=== PATIENT | male | born 1995 | race Caucasian/White ===

== ENCOUNTER 2020-03-28 05:06 | Emergency (ER) | payer OTHER, BC ==
--- NOTE | 2020-03-28 05:13 | EDM.PDOC ---
ED HPI GENERAL MEDICAL PROBLEM - General Chief Complaint: Upper Extremity Injury/Pain Stated Complaint: R HAND INJURY S/P FALL Time Seen by Provider: 03/28/20 05:07 Source of Information: Reports: Patient History Limitations: Reports: Intoxication - History of Present Illness INITIAL COMMENTS - FREE TEXT/NARRATIVE: Brought to ER by law enforcement Has been drinking alcohol tonight Told the police that he had been kidnapped and did not feel safe where he was Police found him outside Pt states he fell 2 days ago and has pain and bruise to right thumb Onset: Gradual Duration: Day(s): Location: Reports: Upper Extremity, Right Context: Reports: Trauma - Related Data Allergies Allergy/AdvReac Type Severity Reaction Status Date / Time No Known Allergies Allergy Verified 03/28/20 05:08 Home Meds: Home Meds . [No Known Home Meds] 03/28/20 [History] Review of Systems - Review of Systems Review Of Systems: See Below Musculoskeletal: Reports: Other (Right thumb bruise and pain) ED EXAM, GENERAL - Physical Exam Exam: See Below Exam Limited By: Intoxication Extremities: Other (Right thumb with ecchymosis No deformity Has full ROM Minimal swelling) Departure - Departure Time of Disposition: 05:35 Disposition: Home, Self-Care 01 Clinical Impression: Contusion of thumb, right Qualifiers: Encounter type: initial encounter Damage to nail status: without damage Qualified Code(s): S60.011A - Contusion of right thumb without damage to nail, initial encounter - Discharge Information *PRESCRIPTION DRUG MONITORING PROGRAM REVIEWED*: Not Applicable *COPY OF PRESCRIPTION DRUG MONITORING REPORT IN PATIENT HARSH: Not Applicable Instructions: Contusion, [id number] Care Plan Goals: Ice as needed Follow up in clinic Tylenol or Motrin as needed
== END 2020-03-28 05:20 | disposition home or self-care (01) ==
LOC: LL.ED 05:06
DX: S60.011A Contusion of right thumb without damage to nail, initial encounter (principal); F10.129 Alcohol abuse with intoxication, unspecified; W19.XXXA Unspecified fall, initial encounter
CPT/HCPCS: 99282; 99284

== ENCOUNTER 2020-08-08 10:35 | Emergency (ER) | payer BC ==
--- NOTE | 2020-08-08 11:13 | EDM.PDOC ---
ED HPI GENERAL MEDICAL PROBLEM - General Chief Complaint: General Stated Complaint: carbon monoxide poisoning from work Time Seen by Provider: 08/08/20 11:13 Source of Information: Reports: Patient, Old Records ([facility] EMR. No paper hospital chart available.) History Limitations: Reports: No Limitations - History of Present Illness INITIAL COMMENTS - FREE TEXT/NARRATIVE: The patient drove himself to the emergency room via private automobile for evaluation of nonspecific confusion, including forgetting to pay his bills, etc. during the last couple of weeks with symptoms are currently on an intermittent basis. Sometimes these symptoms do progress at work and at other times they appear after he wakes up from work the next morning. Patient does have a history of chronic intermittent headaches, however not currently. No history of recent visual changes, diplopia, sedation, or other change in neurological status. The patient also denies any recent fever, cough, wheezing, dyspnea, etc., including COVID-19. The patient denies any chest pain/pressure, heart flutter, dizziness, orthostasis, orthopnea, diaphoresis, paresthesias, recent decreased exercise tolerance, or any other anginal-type symptoms. No recent history of abdominal pain, heartburn, nausea, diarrhea, melena, gross hematochezia, or any food intolerance, including fatty foods, etc.. He denies any gross hematuria, colic, or other UTI symptoms. No specific pain today. Note that the patient did miss work yesterday evening and also on 08/01/2020 secondary to the above symptoms. Onset: Gradual, Unknown/Unsure, Other (As above) Duration: Week(s): (As above), Intermittent Location: Reports: Head (Headaches as above). Denies: Face, Neck, Chest, Abdomen, Back, Upper Extremity, Left, Upper Extremity, Right, Radiates to Quality: Reports: Ache, Same as Previous Episode, Other (No pain today) Improves with: Reports: None Worsens with: Reports: None Context: Reports: Other (As above). Denies: Sick Contact, Trauma Associated Symptoms: Reports: Confusion, Headaches (As above). 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 Denies: Hard of Hearing, Impaired Vision, Otitis Media (No glasses no hearing issues no contacts) Cardiovascular History: Reports: None. Denies: Arrhythmia, Heart Murmur, Hypertension Respiratory History: Reports: None Gastrointestinal History: Reports: None Genitourinary History: Reports: None Musculoskeletal History: Reports: None. Denies: Arthritis, Back Pain, Chronic, Fracture, Neck Pain, Chronic, Osteoarthritis Neurological History: Reports: None, Headaches, Chronic. Denies: Brain Injury, Concussion, Head Trauma, Migraines, Seizure Psychiatric History: Reports: Anxiety, Depression. Denies: Abuse, Victim of, ADD, ADHD, Addiction, Psych Hospitalization(s), Psychosis, PTSD, Suicide Attempt, Suicidal Ideation Endocrine/Metabolic History: Reports: None Hematologic History: Reports: None - Past Surgical History Head Surgeries/Procedures: Reports: None HEENT Surgical History: Reports: None. Denies: Adenoidectomy, Myringotomy w Tub e(s), Oral Surgery, Tonsillectomy Cardiovascular Surgical History: Reports: None Respiratory Surgical History: Reports: None GI Surgical History: Reports: None Male Surgical History: Reports: Circumcision, Other (See Below). Denies: Vasectomy Other Male Surgeries/Procedures: Circumcision as an infant Endocrine Surgical History: Reports: Thyroid Biopsy Neurological Surgical History: Reports: None Musculoskeletal Surgical History: Reports: None Oncologic Surgical History: Reports: None Dermatological Surgical History: Reports: None Social & Family History - Tobacco Use Tobacco Use Status *Q: Former Tobacco User Tobacco Use Within Last Twelve Months: Cigarettes Years of Tobacco use: 2 Packs/Tins Daily: 0.1 Packs/Tins Daily Comment: Smoked between ages 19 and 21. Used Tobacco, but Quit: Yes Smoking Cessation Information Provided To Patient: No Second Hand Smoke Exposure: No Second Hand Smoke Education Provided: No - Caffeine Use Caffeine Use: Reports: None. Denies: Coffee, Energy Drinks, Soda, Tea - Alcohol Use Alcohol Use History: Yes Days Per Week of Alcohol Use: 2 Number of Drinks Per Day: 4 Number of Drinks Per Day Comment: Usually beer. No previous DWIs, problems with alcohol abuse, etc. Total Drinks Per Week: 8 Date of Last Drink: 08/07/20 Time of Last Drink: 07:00 Alcohol Use in Last Twelve Months: Yes - Recreational Drug Use Recreational Drug Use: No Drug Use in Last 12 Months: No Recreational Drug Type: Denies: Amphetamines (Speed), Cocaine, Heroin, Inhalants (Glues, Solvents, Aerosols), Marijuana/Hashish, Methamphetamine, Morphine, Oxycodone - Living Situation & Occupation Living situation: Reports: Single (No children), Alone Occupation: Employed ([employer]) ED ROS GENERAL - Review of Systems Review Of Systems: Comprehensive ROS is negative, except as noted in HPI. ED EXAM, GENERAL - Physical Exam Exam: See Below Exam Limited By: No Limitations General Appearance: Alert, WD/WN, No Apparent Distress, Anxious (Moderate) Eye Exam: Bilateral Eye: EOMI, Normal Fundi, Normal Inspection (No vertigo or nystagmus), PERRL Ears: Normal External Exam, Normal Canal, Hearing Grossly Normal, Normal TMs Nose: Normal Inspection, Normal Mucosa, No Blood Throat/Mouth: Normal Inspection, Normal Lips, Normal Teeth, Normal Gums, Normal Oropharynx, Normal Voice, No Airway Compromise. No: Dysphagia, Perioral Cyanosis Head: Atraumatic, Normocephalic. No: Facial Swelling, Facial Tenderness, Sinus Tenderness Neck: Normal Inspection, Supple, Non-Tender, Full Range of Motion. No: Carotid Bruit, Lymphadenopathy (L), Lymphadenopathy (R), Thyromegaly Respiratory/Chest: No Respiratory Distress, Lungs Clear, Normal Breath Sounds, No Accessory Muscle Use, Chest Non-Tender. No: Pleural Rub, Retractions Cardiovascular: Normal Peripheral Pulses, Regular Rate, Rhythm, No Edema, No Gallop, No JVD, No Murmur, No Rub. No: Gallop/S3, Gallop/S4, Friction Rub Peripheral Pulses: 2+: Radial (L), Radial (R), Dorsalis Pedis (L), Dorsalis Pedis (R) GI/Abdominal: Normal Bowel Sounds, Soft, Non-Tender, No Organomegaly, No Distention, No Abnormal Bruit, No Mass. No: Guarding (Male) Exam: Deferred Rectal (Males) Exam: Deferred Back Exam: Normal Inspection, Full Range of Motion. No: CVA Tenderness (L), CVA Tenderness (R), Muscle Spasm Extremities: Normal Inspection, Normal Range of Motion, Non-Tender, No Pedal Edema, Normal Capillary Refill. No: Keri's Sign Neurological: Alert, Oriented, CN II-XII Intact, Normal Cognition, Normal Gait, Normal Reflexes (Negative Babinski's, finger to nose, and pronator rotation tests. No evidence of facial paresis, tongue deviation, orthostasis, etc.. Excellent reverse thought processes.), No Motor/Sensory Deficits Psychiatric: Anxious (Moderate), Depressed Mood (Moderate with good eye contact), Other (Moderate odor of alcohol with only mild intoxication) Skin Exam: Warm, Dry, Intact, Normal Color, No Rash. No: Diaphoretic, Ecchymosis, Wound/Incision Lymphatic: No Adenopathy Course - Vital Signs Last Recorded V/S: Last Vital Signs Temp 36.4 C 08/08/20 10:35 Pulse 103 H 08/08/20 10:35 Resp 16 08/08/20 10:35 BP 135/82 08/08/20 10:35 Pulse Ox 99 08/08/20 10:35 - Orders/Labs/Meds Orders: Active Orders 24 hr Category Date Time Status RT Carbon Monoxide Diffusion [RC] Click to Edit Care 08/08/20 11:28 Active CARBOXYHEMOGLOBIN [REF] Stat Lab 08/08/20 11:25 Received CORONAVIRUS COVID-19 JANIYA [MOLEC] Stat Lab 08/08/20 11:40 Ordered Obtain Past Medical Record [OM.PC] Routine Oth 08/08/20 11:14 Active Labs: Laboratory Tests 08/08/20 08/08/20 08/08/20 Range/Units 11:25 11:30 11:30 Carbon Dioxide 28.9 (21.0-32.0) mmol/L TSH, Ultra Sensitive 1.204 (0.358-3.740) mIU/mL Specimen Type Urincc Urine Color Yellow Urine Appearance Clear Urine pH 7.0 (5.0-9.0) Ur Specific [place] 1.020 (1.005-1.030) Urine Protein Negative (NEGATIVE) mg/dL Urine Glucose (UA) Negative (NEGATIVE) mg/dL Urine Ketones Negative (NEGATIVE) mg/dL Urine Occult Blood Negative (NEGATIVE) Urine Nitrite Negative (NEGATIVE) Urine Bilirubin Negative (NEGATIVE) Urine Urobilinogen 0.2 (0.2-1.0) E.U./dL Ur Leukocyte Esterase Negative (NEGATIVE) Urine RBC Not seen /HPF Urine WBC 0-5 /HPF Ur Epithelial Cells Rare /LPF Urine Bacteria Rare (NONE TO FEW) /HPF Urine Mucus Few H (NEGATIVE) /LPF Urine Opiates Screen Negative (NEGATIVE) Ur Buprenorphine Scrn Negative (NEGATIVE) Ur Oxycodone Screen Negative (NEGATIVE) Ur EDDP (Meth Metab) Negative (NEGATIVE) Ur Barbiturates Screen Negative (NEGATIVE) Ur Tricyclics Screen Negative (NEGATIVE) Ur Amphetamine Screen Negative (NEGATIVE) U Methamphetamines Scrn Negative (NEGATIVE) Urine MDMA Screen Negative (NEGATIVE) U Benzodiazepines Scrn Negative (NEGATIVE) U Cocaine Metab Screen Negative (NEGATIVE) U Marijuana (THC) Screen Negative (NEGATIVE) Ethyl Alcohol 0.156 H (0.000-0.080) g/dL Departure - Departure Time of Disposition: 12:30 Disposition: Home, Self-Care 01 Condition: Good Clinical Impression: Confusion, Mixed anxiety depressive disorder, Alcohol intoxication Chronic headaches Qualifiers: Headache type: tension-type Intractability: not intractable Qualified Code(s): G44.229 - Chronic tension-type headache, not intractable - Discharge Information *PRESCRIPTION DRUG MONITORING PROGRAM REVIEWED*: Not Applicable *COPY OF PRESCRIPTION DRUG MONITORING REPORT IN PATIENT HARSH: Not Applicable Referrals: PCP,None [Primary Care Provider] - Forms: ED Department Discharge Additional Instructions: 1. Follow up with your regular provider in 10-14 days as needed, if symptoms persist. Bring these discharge instructions with you to that visit. 2. Work excuse- See Form 3. 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 Immediately after this visit verify that your cellular telephone's voicemail has been activated and is empty. Also verify that your home telephone's answering machine is operating properly and has space to receive messages. Note that it is sometimes necessary for us to be able to contact you at a later date to discuss your medical care. 5. Please remember that we are ALWAYS here for you and want to answer any questions you may have. Feel free to call the hospital any time and we call you back AMANDA. 6. Maintain recommended quarantine until you have been notified of today's COVID-19 test results as discussed with return to previous social distancing, use of masks, etc., thereafter as per current recommended CDC guidelines Sepsis Event Note (ED) - Evaluation Sepsis Screening Result: No Definite Risk - Focused Exam Vital Signs: Vital Signs Temp Pulse Resp BP Pulse Ox 08/08/20 10:35 36.4 C 103 H 16 135/82 99 - Problem List & Annotations (1) Confusion SNOMED Code(s): 672061923 Code(s): R41.0 - DISORIENTATION, UNSPECIFIED Status: Acute Priority: High Current Visit: No Annotation/Comment:: 2-week history of intermittent confusion and headaches as above with patient almost certain that this is happening secondary to the carbon dioxide or carbon monoxide exposure at work. He does have CO2 detectors at home, which are new and are also located in his bedroom. [employer] work excuse was provided. The patient will request by telephone and I have also irrigated this on his work excuse that his workstation should be monitored by his employer as per discharge instructions. Various therapeutic options were discussed with the patient, who did not wish further extensive blood work, etc. at this time, including CT of the head, etc.. No neurological deficits based on today's exam. (2) Alcohol intoxication SNOMED Code(s): 48505545 Code(s): F10.929 - ALCOHOL USE, UNSPECIFIED WITH INTOXICATION, UNSPECIFIED Status: Acute Priority: High Current Visit: Yes Onset Date: 08/08/20 Annotation/Comment:: Initially the patient stated that he had not had any alcohol for about 4 days, however after our alcohol level was obtained he did admit to drinking alcohol yesterday morning but not thereafter. He denies binge drinking, however note significant persistent elevated alcohol level despite not having any alcohol for about 24 hours? Suspecting alcohol abuse. Continue to observe closely by his regular providers with consideration of thiamine levels, vitamin B12 levels, counseling, etc. Qualifiers: Complication of substance-induced condition: uncomplicated Qualified Code(s): F10.920 - Alcohol use, unspecified with intoxication, uncomplicated (3) Mixed anxiety depressive disorder SNOMED Code(s): 616949693 Code(s): F41.8 - OTHER SPECIFIED ANXIETY DISORDERS Status: Chronic Priority: High Current Visit: Yes Annotation/Comment:: No current medical therapy. Patient admits to some current stressors, however does not discuss specifics. Note alcohol use as above. Moderate control based on today's exam. Continue to observe closely by his regular providers. (4) Chronic headaches SNOMED Code(s): 763559769 Code(s): R51.9 - HEADACHE, UNSPECIFIED; G89.29 - OTHER CHRONIC PAIN Status: Chronic Priority: Medium Current Visit: No Annotation/Comment:: As above Qualifiers: Headache type: tension-type Intractability: not intractable Qualified Code(s): G44.229 - Chronic tension-type headache, not intractable - Problem List Review Problem List Initiated/Reviewed/Updated: Yes - My Orders Last 24 Hours: My Active Orders 08/08/20 11:14 Obtain Past Medical Record [OM.PC] Routine 08/08/20 11:25 CARBOXYHEMOGLOBIN [REF] Stat 08/08/20 11:28 RT Carbon Monoxide Diffusion [RC] Click to Edit 08/08/20 11:40 CORONAVIRUS COVID-19 JANIYA [MOLEC] Stat - Assessment/Plan Last 24 Hours: My Active Orders 08/08/20 11:14 Obtain Past Medical Record [OM.PC] Routine 08/08/20 11:25 CARBOXYHEMOGLOBIN [REF] Stat 08/08/20 11:28 RT Carbon Monoxide Diffusion [RC] Click to Edit 08/08/20 11:40 CORONAVIRUS COVID-19 JANIYA [MOLEC] Stat Assessment:: As above Plan: As above. Extensive precautions were given to the patient, who is in agreement with the treatment plan. See Patient Instructions for further treatment and plan.
[2020-08-08 11:57] LABS: BARBITURATE SCREEN,URINE NEGATIVE (NEGATIVE); BENZODIAZEPINES SCREEN,URINE NEGATIVE (NEGATIVE); EDDP,URINE SCREEN NEGATIVE (NEGATIVE); TCA SCREEN,URINE NEGATIVE (NEGATIVE); THC SCREEN,URINE 50 NG/ML NEGATIVE (NEGATIVE)
== END 2020-08-08 12:33 | disposition home or self-care (01) ==
LOC: LL.ED 10:35
DX: G44.229 Chronic tension-type headache, not intractable (principal); R41.0 Disorientation, unspecified; F41.8 Other specified anxiety disorders; F10.129 Alcohol abuse with intoxication, unspecified; Y90.6 Blood alcohol level of 120-199 mg/100 ml; Z87.891 Personal history of nicotine dependence; Z20.822 Contact with and (suspected) exposure to COVID-19
CPT/HCPCS: 36415; 80305-QW; 80307; 81001; 82374; 82375; 84443; 99283; 99285-25; U0002

== ENCOUNTER 2020-08-22 13:28 | Emergency (ER) | payer BC ==
--- NOTE | 2020-08-22 13:30 | EDM.PDOC ---
ED HPI GENERAL MEDICAL PROBLEM - General Chief Complaint: Genitourinary Problem Stated Complaint: burning urination/abd pain Time Seen by Provider: 08/22/20 13:30 Source of Information: Reports: Patient, Old Records ([facility] EMR. No paper hospital chart available.) History Limitations: Reports: No Limitations - History of Present Illness INITIAL COMMENTS - FREE TEXT/NARRATIVE: The patient was brought to the emergency room via private automobile by his friend and coworker for evaluation of a 2-3-year history of nonspecific dysuria and urinary frequency with symptoms increasing over the last week. He did miss work yesterday evening secondary to the above symptoms with no history of colic, gross hematuria, or other known UTI symptoms. He rates his discomfort at 3/10 with questionable radiation of his burning to the pelvis and epigastric region? No recent history of true abdominal pain, heartburn, nausea, diarrhea, melena, gross hematochezia, or any food intolerance, including fatty foods, etc.. The patient also denies any recent fever, cough, wheezing, dyspnea, etc.. He has not taken any medications for the above symptoms. He denies any STD exposure, urethral discharge, etc.. Onset: Gradual, Other (As above) Duration: Intermittent, Recurring Location: Reports: Abdomen, Pelvis, Radiates to (As above). Denies: Head, Face, Neck, Chest, Back, Upper Extremity, Left, Upper Extremity, Right, Lower Extremity, Left, Lower Extremity, Right Quality: Reports: Burning, Same as Previous Episode Severity: Mild Improves with: Reports: None Worsens with: Reports: None Context: Reports: Other (As above). 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 Denies: Hard of Hearing, Impaired Vision, Otitis Media (No glasses no hearing issues no contacts) Cardiovascular History: Reports: None. Denies: Aneurysm, Arrhythmia, Blood Clots/VTE/DVT, CAD, Heart Murmur, High Cholesterol, Hypertension, Syncope Respiratory History: Reports: Other (See Below). Denies: Asthma, COPD, Intubation, Previous, PE Other Respiratory History: Borderline carbon monoxide exposure on 08/08/2020. Gastrointestinal History: Reports: None Genitourinary History: Reports: None Musculoskeletal History: Reports: None. Denies: Arthritis, Back Pain, Chronic, Fracture, Neck Pain, Chronic, Osteoarthritis Neurological History: Reports: None, Headaches, Chronic. Denies: Brain Injury, Concussion, Head Trauma, Migraines, Seizure Psychiatric History: Reports: Anxiety, Depression. Denies: Abuse, Victim of, ADD, ADHD, Addiction, Psych Hospitalization(s), Psychosis, PTSD, Suicide Attempt, Suicidal Ideation Endocrine/Metabolic History: Reports: None. Denies: Diabetes, Type I, Diabetes, Type II, Hypothyroidism, IDDM, Obesity/BMI 30+ Hematologic History: Reports: None. Denies: Anemia Immunologic History: Denies: AIDS, SLE Oncologic (Cancer) History: Reports: None. Denies: Basal Cell Carcinoma, Colon, Hodgkin's Lymphoma, Leukemia, Lymphoma, Malignant Melanoma, Non-Hodgkin's Lymphoma, Prostate, Squamous Cell Carcinoma Dermatologic History: Reports: None. Denies: Eczema, Psoriasis - Infectious Disease History Infectious Disease History: Reports: Chicken Pox. Denies: Measles, Meningitis, Mononucleosis, MRSA, Mumps, Novel Coronavirus, Pertussis (Whooping Cough), Rheumatic Fever, Rubella, Scarlet Fever, Shingles, TB, VRE - Past Surgical History Head Surgeries/Procedures: Reports: None HEENT Surgical History: Reports: None. Denies: Adenoidectomy, Myringotomy w Tube(s), Oral Surgery, Tonsillectomy Cardiovascular Surgical History: Reports: None Respiratory Surgical History: Reports: None GI Surgical History: Reports: None. Denies: Appendectomy, Hernia, Abdominal, Hernia, Inguinal, Hernia Repair/Other Male Surgical History: Reports: Circumcision, Other (See Below). Denies: Vasectomy Other Male Surgeries/Procedures: Circumcision as an infant Endocrine Surgical History: Reports: Thyroid Biopsy Neurological Surgical History: Reports: None. Denies: C-Spine, Discectomy, Laminectomy, Lumbar Spine, Sacral Spine, Spinal Fusion, Thoracic Spine, Vertebroplasty Musculoskeletal Surgical History: Reports: None. Denies: Arthroscopic Procedure, Carpal Tunnel, Ganglion Cyst, Joint Replacement, ORIF, Shoulder Surgery Oncologic Surgical History: Reports: None Dermatological Surgical History: Reports: None Social & Family History - Tobacco Use Tobacco Use Status *Q: Former Tobacco User Tobacco Use Within Last Twelve Months: No Years of Tobacco use: 2 Packs/Tins Daily: 0.1 Packs/Tins Daily Comment: 1 pack/week between ages 19 and 21. Used Tobacco, but Quit: Yes Smoking Cessation Information Provided To Patient: No Second Hand Smoke Exposure: No Second Hand Smoke Education Provided: No - Caffeine Use Caffeine Use: Reports: Coffee (2 cups/month). Denies: Energy Drinks, Soda, Tea - Alcohol Use Alcohol Use History: Yes Days Per Week of Alcohol Use: 2 Number of Drinks Per Day: 6 Number of Drinks Per Day Comment: Usually beer. No previous DWIs, problems with alcohol abuse, etc.. Note intoxication in the emergency room on 08/08/2020. Total Drinks Per Week: 12 Alcohol Use in Last Twelve Months: Yes Alcohol Use Frequency: Binges - Recreational Drug Use Recreational Drug Use: No Drug Use in Last 12 Months: No Recreational Drug Type: Denies: Amphetamines (Speed), Cocaine, Heroin, Inhalants (Glues, Solvents, Aerosols), LSD (Acid), Marijuana/Hashish, Methamphetamine, Morphine, Oxycodone - Living Situation & Occupation Living situation: Reports: Single (No children), Alone Occupation: Employed ([employer]) ED ROS GENERAL - Review of Systems Review Of Systems: Comprehensive ROS is negative, except as noted in HPI. ED EXAM, RENAL/ - Physical Exam Exam: See Below Exam Limited By: No Limitations General Appearance: Alert, WD/WN, No Apparent Distress, Anxious (Mild) Head: Atraumatic, Normocephalic Neck: Normal Inspection, Supple, Non-Tender, Full Range of Motion. No: Lymphadenopathy (L), Lymphadenopathy (R), Thyromegaly Respiratory/Chest: No Respiratory Distress, Lungs Clear, Normal Breath Sounds, No Accessory Muscle Use, Chest Non-Tender. No: Pleural Rub, Retractions Cardiovascular: Normal Peripheral Pulses, Regular Rate, Rhythm, No Edema, No Gallop, No JVD, No Murmur, No Rub. No: Gallop/S3, Gallop/S4, Friction Rub GI/Abdominal: Normal Bowel Sounds, Soft, Non-Tender, No Organomegaly, No Distent ion, No Abnormal Bruit, No Mass. No: Pelvis Stable, Guarding (Male) Exam: Deferred Rectal (Males) Exam: Deferred Back Exam: Normal Inspection, Full Range of Motion. No: CVA Tenderness (L), CVA Tenderness (R), Muscle Spasm Extremities: Normal Inspection, Normal Range of Motion, Non-Tender, No Pedal Edema, Normal Capillary Refill. No: Keri's Sign Neurological: Alert, Oriented, CN II-XII Intact, Normal Cognition, Normal Gait, No Motor/Sensory Deficits Psychiatric: Anxious (Mild), Depressed Mood (Borderline) Skin Exam: Warm, Dry, Intact, Normal Color, No Rash. No: Diaphoretic, Ecchymosis, Jaundice, Pallor, Petechiae, Wound/Incision Lymphatic: No Adenopathy Course - Vital Signs Last Recorded V/S: Last Vital Signs Temp 36.1 C 08/22/20 13:30 Pulse 93 08/22/20 13:30 Resp 16 08/22/20 13:30 BP 137/81 08/22/20 13:30 Pulse Ox 96 08/22/20 13:30 Vital Signs - 24 hr 08/22/20 13:30 Temperature [ 36.1 C Temporal] Pulse, 93 Peripheral [ Pulse Oximetry] Respiratory 16 Rate Blood Pressure 137/81 [Right Upper Arm] O2 Sat by Pulse 96 Oximetry - Orders/Labs/Meds Orders: Active Orders 24 hr Category Date Time Status Obtain Past Medical Record [OM.PC] Routine Oth 08/22/20 13:30 Active Labs: Laboratory Tests 08/22/20 Range/Units 13:30 Specimen Type Urincc Urine Color Light yellow Urine Appearance Clear Urine pH 6.0 (5.0-9.0) Ur Specific [place] <= 1.005 (1.005-1.030) Urine Protein Negative (NEGATIVE) mg/dL Urine Glucose (UA) Negative (NEGATIVE) mg/dL Urine Ketones Negative (NEGATIVE) mg/dL Urine Occult Blood Negative (NEGATIVE) Urine Nitrite Negative (NEGATIVE) Urine Bilirubin Negative (NEGATIVE) Urine Urobilinogen 0.2 (0.2-1.0) E.U./dL Ur Leukocyte Esterase Negative (NEGATIVE) Urine RBC Not seen /HPF Urine WBC Not seen /HPF Ur Epithelial Cells Not seen /LPF Urine Bacteria Not seen (NONE TO FEW) /HPF Urine specimen sent for culture and sensitivity. Meds: None - Radiology Interpretation Free Text/Narrative:: None Departure - Departure Time of Disposition: 14:15 Disposition: Home, Self-Care 01 Condition: Good Clinical Impression: Dysuria, Mixed anxiety depressive disorder - Discharge Information *PRESCRIPTION DRUG MONITORING PROGRAM REVIEWED*: Not Applicable *COPY OF PRESCRIPTION DRUG MONITORING REPORT IN PATIENT HARSH: Not Applicable Instructions: Dysuria Referrals: PCP,None [Primary Care Provider] - Forms: ED Department Discharge Additional Instructions: 1. Follow up with your regular provider in 10-14 days as needed, if symptoms persist. Bring these discharge instructions with you to that visit. 2. Consider further work-up, if symptoms persist, including possible STD screening for chlamydia, etc. 3. Work excuse- See Form 4. Trimble diet including encouragement of oral fluids such as sports drinks, etc. for 24-48 hours as directed. Advance to regular diet as tolerated thereafter. 5. Immediately after this visit verify that your cellular telephone's voicemail has been activated and is empty. Also verify that your home telephone's answering machine is operating properly and has space to receive messages. Note that it is sometimes necessary for us to be able to contact you at a later date to discuss your medical care. 6. Please remember that we are ALWAYS here for you and want to answer any questions you may have. Feel free to call the hospital any time and we call you back AMANDA. Sepsis Event Note (ED) - Focused Exam Vital Signs: Vital Signs Temp Pulse Resp BP Pulse Ox 08/22/20 13:30 36.1 C 93 16 137/81 96 - Problem List & Annotations (1) Dysuria SNOMED Code(s): 30693203 Code(s): R30.0 - DYSURIA Status: Acute Priority: High Onset Date: ~08/22/20 Annotation/Comment:: Long history of dysuria without previous work- up by patient history. Note negative UA as above with specimen sent for culture and sensitivity. The nurse suspected that the patient actually used tap water rather than a urine sample for the above evaluation, which the patient denied when asked by the nurse. Observe for now with possible further work-up, including urology consultation, renal ultrasound, evaluation for possible latent STD, including chlamydia, etc. depending on his clinical course. [employer] work excuse was provided. (2) Mixed anxiety depressive disorder SNOMED Code(s): 336730434 Code(s): F41.8 - OTHER SPECIFIED ANXIETY DISORDERS Status: Chronic P riority: High Annotation/Comment:: No current medical therapy with continued moderately poor control, including evidence of intoxication at time of last emergency room visit with me in this facility on 08/08/2020 as above. No evidence of intoxication at this time. Patient was strongly encouraged to establish a primary care provider AMANDA with further psychotherapy, medical therapy, etc. depending on his clinical course. Emotional support was provided. - Problem List Review Problem List Initiated/Reviewed/Updated: Yes - My Orders Last 24 Hours: My Active Orders 08/22/20 13:30 Obtain Past Medical Record [OM.PC] Routine - Assessment/Plan Last 24 Hours: My Active Orders 08/22/20 13:30 Obtain Past Medical Record [OM.PC] Routine Assessment:: As above Plan: As above. Extensive precautions were given to the patient, who is in agreement with the treatment plan. See Patient Instructions for further treatment and plan.
== END 2020-08-22 14:15 | disposition home or self-care (01) ==
LOC: LL.ED 13:28
DX: R30.0 Dysuria (principal); F41.8 Other specified anxiety disorders; Z87.891 Personal history of nicotine dependence
CPT/HCPCS: 81001; 99283

== ENCOUNTER 2020-09-16 12:32 | Emergency (ER) | payer BC ==
[2020-09-16 12:46] VITALS: BP 136/82; PULSE 87
--- NOTE | 2020-09-16 12:51 | EDM.PDOC ---
ED HPI GENERAL MEDICAL PROBLEM - General Chief Complaint: Genitourinary Problem Stated Complaint: UTI s/s, RLQ discomfort Time Seen by Provider: 09/16/20 12:50 Source of Information: Reports: Patient, Old Records ([facility] EMR. No paper hospital chart available.) History Limitations: Reports: No Limitations - History of Present Illness INITIAL COMMENTS - FREE TEXT/NARRATIVE: The patient was brought to the emergency room via private automobile by his neighbor for evaluation of a 2-3-year history of nonspecific chronic lower bilateral quadrant abdominal pain associated with nonspecific dysuria and urinary frequency. The patient was evaluated in this facility on 08/22/2020 for similar type symptoms with negative work-up at that time, however symptoms con tinue to occur on a daily versus every other day basis. He did not follow-up as previously recommended. He denies any gross hematuria, colic, or other UTI symptoms. No known exposure to STDs or other infection. No recent history of other abdominal pain, heartburn, nausea, diarrhea, melena, gross hematochezia, or any food intolerance, including fatty foods, etc.. The patient also denies any recent fever, cough, wheezing, dyspnea, etc.. Onset: Gradual, Other (As above) Duration: Chronic, Intermittent, Other (As above) Location: Reports: Back (Chronic low back currently treated by chiropractor). Denies: Head, Face, Neck, Chest, Abdomen, Upper Extremity, Left, Upper Extremity, Right, Lower Extremity, Left, Lower Extremity, Right, Radiates to Quality: Reports: Same as Previous Episode, Sharp Severity: Mild Improves with: Reports: None Worsens with: Reports: None Context: Reports: Other (As above). Denies: Sick Contact, Trauma Associated Symptoms: Reports: No Other Symptoms. 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 Denies: Allergic Rhinitis, Hard of Hearing, Impaired Vision, Otitis Media Cardiovascular History: Reports: None. Denies: Aneurysm, Arrhythmia, Blood Clots/VTE/DVT, CAD, Heart Murmur, High Cholesterol, Hypertension, Syncope Respiratory History: Reports: Other (See Below). Denies: Asthma, COPD, Intubation, Previous, PE Other Respiratory History: Borderline carbon monoxide exposure on 08/08/2020. Gastrointestinal History: Reports: Other (See Below) Other Gastrointestinal History: Chronic bilateral lower quadrant abdominal pain of unknown etiology since about 2018. Genitourinary History: Reports: Other (See Below). Denies: Acute Renal Failure, BPH, Chronic Renal Insuffiency, Renal Calculus, STD, Urinary Incontinence, UTI, Recurrent Other Genitourinary History: Chronic intermittent dysuria since 2018. Musculoskeletal History: Reports: Arthritis, Back Pain, Chronic, Osteoarthritis. Denies: Fracture, Gout, Neck Pain, Chronic, RA, SLE Neurological History: Reports: Headaches, Chronic. Denies: Cerebral Aneurysms, Concussion, Head Trauma, Migraines, Seizure, TIA, Vertigo Psychiatric History: Reports: Anxiety, Depression. Denies: Abuse, Victim of, ADD, ADHD, Addiction, Psych Hospitalization(s), PTSD, Suicide Attempt, Suicidal Ideation Endocrine/Metabolic History: Reports: None. Denies: Diabetes, Type I, Diabetes, Type II, Hypothyroidism, IDDM, Obesity/BMI 30+ Hematologic History: Reports: None. Denies: Anemia, Blood Transfusion(s) Oncologic (Cancer) History: Reports: None. Denies: Basal Cell Carcinoma, Colon, Hodgkin's Lymphoma, Leukemia, Lymphoma, Malignant Melanoma, Non-Hodgkin's Lymphoma, Prostate, Squamous Cell Carcinoma Dermatologic History: Reports: None. Denies: Eczema, Psoriasis - Infectious Disease History Infectious Disease History: Reports: Chicken Pox. Denies: Measles, Meningitis, Mononucleosis, MRSA, Mumps, Novel Coronavirus, Pertussis (Whooping Cough), Rheumatic Fever, Rubella, Scarlet Fever, Shingles, TB, VRE - Past Surgical History Head Surgeries/Procedures: Reports: None HEENT Surgical History: Reports: None. Denies: Adenoidectomy, Eye Surgery, Laser Surgery, Myringotomy w Tube(s), Naso-Sinus Surgery, Oral Surgery, Tonsillectomy Cardiovascular Surgical History: Reports: None. Denies: Varicose, Vascular Surgery Respiratory Surgical History: Reports: None. Denies: Thoracentesis GI Surgical History: Reports: None. Denies: Appendectomy, Hernia, Abdominal, Hernia, Inguinal, Hernia Repair/Other Male Surgical History: Reports: Circumcision, Other (See Below). Denies: Vasectomy Other Male Surgeries/Procedures: Circumcision as an infant. Endocrine Surgical History: Reports: None. Denies: Thyroid Biopsy Neurological Surgical History: Reports: None. Denies: C-Spine, Discectomy, Laminectomy, Lumbar Spine, Sacral Spine, Spinal Fusion, Thoracic Spine, Vertebroplasty Musculoskeletal Surgical History: Reports: None. Denies: Arthroscopic Procedur e, Carpal Tunnel, Ganglion Cyst, Joint Replacement, ORIF, Shoulder Surgery Oncologic Surgical History: Reports: None Dermatological Surgical History: Reports: None - Past Imaging History Past Imaging History: Reports: None Social & Family History - Tobacco Use Tobacco Use Status *Q: Former Tobacco User Tobacco Use Within Last Twelve Months: No Years of Tobacco use: 2 Packs/Tins Daily: 0.1 Packs/Tins Daily Comment: Smoked about 1 pack/week between ages 19 and 21. Used Tobacco, but Quit: Yes Smoking Cessation Information Provided To Patient: No Second Hand Smoke Exposure: No Second Hand Smoke Education Provided: No - Caffeine Use Caffeine Use: Reports: Coffee (2 cups/month). Denies: Energy Drinks, Soda, Tea - Alcohol Use Alcohol Use History: Yes Days Per Week of Alcohol Use: 2 Number of Drinks Per Day: 6 Number of Drinks Per Day Comment: Usually beer. No previous DWIs, problems with alcohol abuse, etc.. Note intoxication the emergency room on 08/08/2020. Total Drinks Per Week: 12 Alcohol Use in Last Twelve Months: Yes Alcohol Use Frequency: Binges - Recreational Drug Use Recreational Drug Use: No Drug Use in Last 12 Months: No Recreational Drug Type: Denies: Amphetamines (Speed), Cocaine, Heroin, Inhalants (Glues, Solvents, Aerosols), LSD (Acid), Marijuana/Hashish, Methamphetamine, Opium, Oxycodone - Sexual History Sexual History: Reports: Multiple Partners (Not currently). Denies: Oral Sex, Rectal [place] - Living Situation & Occupation Living situation: Reports: Single (No children), Alone Occupation: Employed ([employer]) ED ROS GENERAL - Review of Systems Review Of Systems: Comprehensive ROS is negative, except as noted in HPI. ED EXAM, GI/ABD - Physical Exam Exam: See Below Exam Limited By: No Limitations General Appearance: Alert, WD/WN, No Apparent Distress, Anxious (Mild) Head: Atraumatic, Normocephalic Neck: Normal Inspection, Supple, Non-Tender, Full Range of Motion. No: Lymphadenopathy (L), Lymphadenopathy (R), Thyromegaly Respiratory/Chest: No Respiratory Distress, Lungs Clear, Normal Breath Sounds, No Accessory Muscle Use, Chest Non-Tender. No: Pleural Rub, Retractions Cardiovascular: Normal Peripheral Pulses, Regular Rate, Rhythm, No Edema, No Gallop, No JVD, No Murmur, No Rub. No: Gallop/S3, Gallop/S4, Friction Rub GI/Abdominal Exam: Normal Bowel Sounds, Soft, Non-Tender, No Organomegaly, No Distention, No Abnormal Bruit, No Mass, Pelvis Stable. No: Guarding (Male) Exam: No Hernia, Normal Inspection, Circumcised. No: Inguinal Lymphadenopathy, Penile Lesions, Rash, Scrotum Tenderness (L), Scrotum Tenderness (R), Suprapubic Fullness, Testicular Tenderness (L), Testicular Tenderness (R) Rectal (Males) Exam: Deferred Back Exam: Normal Inspection, Full Range of Motion. No: CVA Tenderness (L), CVA Tenderness (R), Muscle Spasm Extremities: Normal Inspection, Normal Range of Motion, Non-Tender, No Pedal Edema, Normal Capillary Refill. No: Keri's Sign Neurological: Alert, Oriented, CN II-XII Intact, Normal Cognition, Normal Gait, No Motor/Sensory Deficits Psychiatric: Anxious (Mild), Depressed Mood (Borderline) Skin Exam: Warm, Dry, Intact, Normal Color, No Rash. No: Diaphoretic, Wound/Incision Lymphatic: No Adenopathy Course - Vital Signs Last Recorded V/S: Last Vital Signs Temp 36.8 C 09/16/20 12:45 Pulse 87 09/16/20 12:45 Resp 15 09/16/20 12:45 BP 136/82 09/16/20 12:45 Pulse Ox 97 09/16/20 12:45 Vital Signs - 24 hr 09/16/20 12:45 Temperature [ 36.8 C Temporal] Pulse, 87 Peripheral [ Left Pulse Oximetry] Respiratory 15 Rate Blood Pressure 136/82 [Right Upper Arm] O2 Sat by Pulse 97 Oximetry - Orders/Labs/Meds Orders: Active Orders 24 hr Category Date Time Status Peripheral IV Care [RC] . DIRECTED Care 09/16/20 13:47 Active Abdomen Pelvis w Cont [CT] Stat Exams 09/16/20 13:01 Taken CHLAMYDIA AND GONORRHEA BY TMA Routine Lab 09/16/20 13:00 Received CULTURE URINE [RM] Routine Lab 09/16/20 12:46 Received HIV AG/AB W/REFLEX [REF] Stat Lab 09/16/20 13:10 Received RPR (SYPHILIS SERO) W/ RFLX [REF] Routine Lab 09/16/20 13:10 Received Sodium Chloride 0.9% [Saline Flush] Med 09/16/20 13:47 Active 10 ml FLUSH ASDIRECTED PRN Obtain Past Medical Record [OM.PC] Routine Oth 09/16/20 12:51 Active Peripheral IV Insertion Adult [OM.PC] Routine Oth 09/16/20 13:47 Ordered Medication Orders Sodium Chloride (Sodium Chloride 0.9% 10 Ml Syringe) 10 ml FLUSH ASDIRECTED PRN PRN Reason: Keep Vein Open Labs: Laboratory Tests 09/16/20 09/16/20 09/16/20 Range/Units 12:46 13:10 13:10 WBC 6.4 (4.0-10.2) K/uL RBC 4.98 (4.33-5.41) M/uL Hgb 15.8 (13.1-16.8) g/dL Hct 44.6 (39.0-49.0) % MCV 89.6 (84.0-98.0) fL MCH 31.7 (28.2-33.3) pg MCHC 35.4 (31.7-36.0) g/dL RDW 12.2 (11.2-14.1) % Plt Count 253 (150-350) K/uL Neut % (Auto) 54.4 (45.0-80.0) % Lymph % (Auto) 32.0 (10.0-50.0) % [place] % (Auto) 12.6 (2.0-14.0) % Eos % (Auto) 0.5 (0.0-5.0) % Baso % (Auto) 0.5 (0.0-2.0) % Neut # (Auto) 3.50 (1.40-7.00) K/uL Lymph # (Auto) 2.06 (0.50-3.50) K/uL [place] # (Auto) 0.81 (0.00-1.00) K/uL Eos # (Auto) 0.03 (0.00-0.50) K/uL Baso # (Auto) 0.03 (0.00-0.20) K/uL Sodium 140 (136-145) mmol/L Potassium 3.8 (3.5-5.1) mmol/L Chloride 102 (98-107) mmol/L Carbon Dioxide 29.9 (21.0-32.0) mmol/L BUN 6 L (7-18) mg/dL Creatinine 0.87 (0.51-1.17) mg/dL Est Cr Clr Drug Dosing 126.00 mL/min Estimated GFR (MDRD) > 60 mL/min Glucose 103 H (70-99) mg/dL Calcium 9.1 (8.5-10.1) mg/dL Total Bilirubin 0.3 (0.2-1.0) mg/dL AST 27 (15-37) U/L ALT 34 (12-78) U/L Alkaline Phosphatase 65 (46-116) IU/L Total Protein 8.5 H (6.4-8.2) g/dL Albumin 4.9 (3.4-5.0) g/dL Specimen Type Urinvoid Urine Color Light yellow Urine Appearance Clear Urine pH 7.0 (5.0-9.0) Ur Specific [place] 1.010 (1.005-1.030) Urine Protein Negative (NEGATIVE) mg/dL Urine Glucose (UA) Negative (NEGATIVE) mg/dL Urine Ketones Negative (NEGATIVE) mg/dL Urine Occult Blood Negative (NEGATIVE) Urine Nitrite Negative (NEGATIVE) Urine Bilirubin Negative (NEGATIVE) Urine Urobilinogen 0.2 (0.2-1.0) E.U./dL Ur Leukocyte Esterase Negative (NEGATIVE) Urine RBC Not seen /HPF Urine WBC Not seen /HPF Urine Bacteria Not seen (NONE TO FEW) /HPF Meds: Medications Generic Name Dose Route Start Last Admin Trade Name Freq PRN Reason Stop Dose Admin Sodium Chloride 10 ml 09/16/20 13:47 Sodium Chloride 0.9% 10 Ml Syringe FLUSH ASDIRECTED PRN Keep Vein Open Discontinued Medications Generic Name Dose Route Start Last Admin Trade Name Freq PRN Reason Stop Dose Admin Iopamidol 100 ml 09/16/20 13:08 09/16/20 13:59 Iopamidol 612 Mg/Ml 100 Ml Bottle IVPUSH 09/16/20 13:09 100 ml ONETIME STA Administration None - Radiology Interpretation Free Text/Narrative:: Telephone consultation at 2:19 PM with the radiology department at [facility] in [place]. Preliminary verbal report of CT scan of the abdomen and pelvis with both IV and oral contrast was completely normal with exception of some stool being present. CT Results Date: 09/16/20 CT Results Time: 14:19 Departure - Departure Time of Disposition: 14:40 Disposition: Home, Self-Care 01 Condition: Good Clinical Impression: Mixed anxiety depressive disorder, Dysuria Abdominal pain Qualifiers: Abdominal location: lower abdomen, unspecified Qualified Code(s): R10.30 - Lower abdominal pain, unspecified Osteoarthritis Qualifiers: Osteoarthritis location: multiple joints Osteoarthritis type: primary Qualified Code(s): M89.49 - Other hypertrophic osteoarthropathy, multiple sites - Discharge Information *PRESCRIPTION DRUG MONITORING PROGRAM REVIEWED*: Not Applicable *COPY OF PRESCRIPTION DRUG MONITORING REPORT IN PATIENT HARSH: Not Applicable Referrals: PCP,None [Primary Care Provider] - Forms: ED Department Discharge Additional Instructions: 1. Establish a local provider AMANDA as previously discussed 2. Followup with your regular provider in 7-10 days as directed for reevaluation and discussion of today's pending GC, chlamydia, HIV, and syphilis results. Bring these discharge instructions with you to that visit. 3. Consider referral to a urologist and/your GI specialist at follow-up depending on the above test results and your symptoms at time of that follow-up. 4. Work excuse- See Form 5. Immediately after this visit verify that your cellular telephone's voicemail has been activated and is empty. Also verify that your home telephone's Moontoast machine is operating properly and has space to receive messages. Note that it is sometimes necessary for us to be able to contact you at a later date to discuss your medical care. 6. Please remember that we are ALWAYS here for you and want to answer any questions you may have. Feel free to call the hospital any time and we call you back AMANDA. Sepsis Event Note (ED) - Evaluation Sepsis Screening Result: No Definite Risk - Focused Exam Vital Signs: Vital Signs Temp Pulse Resp BP Pulse Ox 09/16/20 12:45 36.8 C 87 15 136/82 97 - Problem List & Annotations (1) Abdominal pain SNOMED Code(s): 84358977 Code(s): R10.9 - UNSPECIFIED ABDOMINAL PAIN Status: Acute Priority: High Current Visit: Yes Annotation/Comment:: Note CT scan of the abdomen and pelvis results as above. Long history of chronic intermittent lower quadrant abdominal pain of unknown etiology. No evidence of hernia based on my exam today. Close follow-up by regular provider with possible GI versus urological referral depending on his clinical course. [employer] excuse was provided. Qualifiers: Abdominal location: lower abdomen, unspecified Qualified Code(s): R10.30 - Lower abdominal pain, unspecified (2) Dysuria SNOMED Code(s): 69477501 Code(s): R30.0 - DYSURIA Status: Acute Priority: High Current Visit: Yes Onset Date: ~08/22/20 Annotation/Comment:: Long history of dysuria without previous work-up by patient history. Note negative UA as above with specimen once again sent for culture and sensitivity. Urine specimen appears somewhat diluted in nature. Note that at time of last ER visit on 08/22/2020 the nurse suspected that the patient actually used tap water rather than a urine sample for the above evaluation, which the patient denied when asked by the nurse. No follow-up since that ER evaluation. Various therapeutic options were discussed with the patient with CT scan of the abdomen pelvis with oral and IV contrast conducted today. Additional specimens were collected for GC, chlamydia, RPR, and HIV/AIDS with results to be discussed at time of follow-up visit as per discharge instructions. He was once again strongly advised to establish a local provider. 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 This does not seem to be related to his current intermittent bilateral inguinal discomfort at this time, however consider CT versus MRI scan of the lumbar spine depending on his clinical course. Qualifiers: Osteoarthritis location: multiple joints Osteoarthritis type: primary Qualified Code(s): M89.49 - Other hypertrophic osteoarthropathy, multiple sites (4) Mixed anxiety depressive disorder SNOMED Code(s): 499930387 Code(s): F41.8 - OTHER SPECIFIED ANXIETY DISORDERS Status: Chronic Priority: High Current Visit: Yes Annotation/Comment:: No current medical therapy with continued moderate control based on today's and previous exams. No evidence of intoxication at this time. Further psychotherapy, medical therapy, etc. depending on his clinical course. Emotional support was provided. - Problem List Review Problem List Initiated/Reviewed/Updated: Yes - My Orders Last 24 Hours: My Active Orders 09/16/20 12:46 CULTURE URINE [RM] Routine 09/16/20 12:51 Obtain Past Medical Record [OM.PC] Routine 09/16/20 13:00 CHLAMYDIA AND GONORRHEA BY TMA Routine 09/16/20 13:01 Abdomen Pelvis w Cont [CT] Stat 09/16/20 13:10 HIV AG/AB W/REFLEX [REF] Stat RPR (SYPHILIS SERO) W/ RFLX [REF] Routine 09/16/20 13:47 Peripheral IV Care [RC] . DIRECTED Sodium Chloride 0.9% [Saline Flush] 10 ml FLUSH ASDIRECTED PRN Peripheral IV Insertion Adult [OM.PC] Routine - Assessment/Plan Last 24 Hours: My Active Orders 09/16/20 12:46 CULTURE URINE [RM] Routine 09/16/20 12:51 Obtain Past Medical Record [OM.PC] Routine 09/16/20 13:00 CHLAMYDIA AND GONORRHEA BY TMA Routine 09/16/20 13:01 Abdomen Pelvis w Cont [CT] Stat 09/16/20 13:10 HIV AG/AB W/REFLEX [REF] Stat RPR (SYPHILIS SERO) W/ RFLX [REF] Routine 09/16/20 13:47 Peripheral IV Care [RC] . DIRECTED Sodium Chloride 0.9% [Saline Flush] 10 ml FLUSH ASDIRECTED PRN Peripheral IV Insertion Adult [OM.PC] Routine Assessment:: As above Plan: As above. Extensive precautions were given to the patient, who is in agreement with the treatment plan. See Patient Instructions for further treatment and plan.
[2020-09-16] MEDS ORDERED: Iopamidol 612 MG/ML 100 ML Bottle IVPUSH STA (13:08)
[2020-09-16 13:37] LABS: CHLORIDE,CL 102 mmol/L (98-107); SODIUM,NA 140 mmol/L (136-145)
[2020-09-16] MEDS ORDERED: Sodium Chloride 0.9% 10 ML Syringe FLUSH PRN (13:47)
[2020-09-18 13:46] LABS: C.TRACHOMATIS BY TMA Negative (Negative); N.GONORRHOEAE BY TMA Negative (Negative)
== END 2020-09-16 14:40 | disposition home or self-care (01) ==
LOC: LL.ED 12:32
DX: R10.32 Left lower quadrant pain (principal); R10.31 Right lower quadrant pain; M89.49 Other hypertrophic osteoarthropathy, multiple sites; F41.8 Other specified anxiety disorders; R30.0 Dysuria; Z87.891 Personal history of nicotine dependence
CPT/HCPCS: 36415; 74177; 80053; 81001; 85025; 86592; 87086; 87389; 87491; 87591; 99284; 99284-25; Q9967